=== PATIENT | female | born 1930 | race Caucasian/White ===

== ENCOUNTER 2018-02-21 12:21 | Outpatient (CLI) | payer MEDICARE, OTHER ==
--- NOTE | 2018-02-21 15:19 | RAD ---
THORACIC SPINE 3 VIEWS: HISTORY: Back pain. FINDINGS: There are 12 thoracic-type vertebrae. Pedicles are intact. Vertebral body heights and alignment are maintained. Moderate osteophytosis throughout the vertebral bodies and facets. Dorsal column stimu lator leads overlie the thoracic spine at the midline to the T7-T8 level. IMPRESSION: Degenerative changes thoracic spine. No acute osseous abnormalities are demonstrated. POS: [facility]
== END 2018-02-21 12:22 | disposition home or self-care (01) ==
LOC: RAD 12:21
PROVIDERS: ATTEND Nurse Practitioner Family
DX: M47.24 Other spondylosis with radiculopathy, thoracic region (principal)
CPT/HCPCS: 72072

== ENCOUNTER 2018-08-05 10:56 | Outpatient (CLI) | payer MEDICARE, OTHER ==
[~2018-08-05 10:56] MED LIST: Iopamidol 370 76% 100 ML VIAL ONE
--- NOTE | 2018-08-05 12:23 | CT ---
CT PELVIS WITH AND WITHOUT CONTRAST: Date: 08/05/18 HISTORY: Pelvic pain. COMPARISON: None. FINDINGS: CT of the pelvis performed prior to and after the intravenous administration of contrast. Enteric con trast was administered. A generator is noted over the left posterior buttock with lead extending craniad, although incomplete ly evaluated on this examination. Mild diverticular disease sigmoid colon. No active inflammation. No free fluid or gas within the pelvis. There are hysterectomy changes. Extensive atherosclerotic plaque of the aorta. No aneurysmal dilatation of the distal aorta or the il iac vessels. Paraspinal musculature is symmetric. Iliopsoas musculature is symmetric. Laminectomy changes lower lumbar spine. There is anterolisthesis of L4 over L5 approximately 6.0 mm. 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 Large posterior disc osteophyte complexes at L3-4 and L4-5 and L5-S1. There is severe neural foraminal narrowing bilaterally at L4-5 due to pos terior disc osteophyte complex, anterolisthesis, and facet changes. IMPRESSION: 1. No acute abnormality of the pelvis. 2. Advanced spondylosis of the lumbar spine, which appears to be mildly progressed from the 2017 MRI study, and could be a source of pain. POS: [facility]
== END 2018-08-05 10:57 | disposition home or self-care (01) ==
LOC: BICCT 10:56
PROVIDERS: ATTEND Internal Medicine Gastroenterology
DX: R10.30 Lower abdominal pain, unspecified (principal); M54.9 Dorsalgia, unspecified; G89.29 Other chronic pain; M47.816 Spondylosis without myelopathy or radiculopathy, lumbar region
CPT/HCPCS: 72194; 82565; Q9967

== ENCOUNTER 2018-10-27 02:11 | Emergency (ER) | payer MEDICARE, OTHER ==
[2018-10-27] MEDS ORDERED: Famotidine 20 MG TAB ONE (02:46)
[2018-10-27] MEDS ORDERED: Dexamethasone 10 MG/ML VIAL ONE (02:46)
[2018-10-27] MEDS ORDERED: diphenhydrAMINE 50 MG CAP ONE (02:46)
== END 2018-10-27 03:42 | disposition home or self-care (01) ==
LOC: ERS 02:11
DX: S40.812A Abrasion of left upper arm, initial encounter (principal); S40.811A Abrasion of right upper arm, initial encounter; L50.9 Urticaria, unspecified; I10 Essential (primary) hypertension; I25.10 Atherosclerotic heart disease of native coronary artery without angina pectoris; I25.2 Old myocardial infarction; E78.5 Hyperlipidemia, unspecified; X58.XXXA Exposure to other specified factors, initial encounter
CPT/HCPCS: 99282; J1100; Q0153

== ENCOUNTER 2019-07-30 14:12 | Outpatient (CLI) | payer MEDICARE, OTHER ==
--- NOTE | 2019-07-30 16:47 | BD ---
Exam: DEXA Bone Density 07/30/19 HISTORY: Osteoporosis. Right hip: BMD (g/cm2) T-SCORE Neck: 0.570 -2.5 Total: 0.710 -1.9 Left hip: Neck: 0.569 -2.5 Total: 0.695 -2.0 The ten year fracture risk for a major osteoporotic fracture is 27% and for hip fracture is 9.8%. IMPRESSION: Osteoporosis. POS: [facility]
== END 2019-07-30 14:13 | disposition home or self-care (01) ==
LOC: BICMAMMO 14:12
PROVIDERS: ATTEND Internal Medicine Rheumatology
DX: M81.0 Age-related osteoporosis without current pathological fracture (principal)
CPT/HCPCS: 77080

== ENCOUNTER 2019-08-25 12:58 | Outpatient (CLI) | payer MEDICARE, OTHER ==
--- NOTE | 2019-08-25 14:15 | CT ---
CT OF THE LUMBAR SPINE WITHOUT CONTRAST: Date: 08/25/2019 COMPARISON: None. HISTORY: Lumbar radiculopathy, low back pain with bilateral leg radiculopathy extending to the feet. TECHNIQUE: Noncontrast enhanced CT examination of the lumbar spine is obtained at 3 mm intervals with coronal an d sagittal reformatted imaging. FINDINGS: Evaluation for central canal and/or neural foraminal stenosis is limited on routine CT examination of the lumbar spine. There are dorsal column stimulators present which extend into the thoracic region and are only partia lly imaged on this exam. At the L4-5 level, there is anterolisthesis measuring 1.2 cm secondary to bilateral L4 pars defects. T12-L1: There is no osseous cause of significant central canal or neural foraminal stenosis. L1-2: No osseous cause of significant central canal or neural foraminal stenosis. L2-3: Minimal disc bulge. Mild bilateral facet hypertrophy. No osseous cause of significant central canal or neural foraminal stenosis. L3-4: There is disc space narrowing and vacuum disc formation with degenerative end plate change and disc bulge. Probable mild central canal stenosis. Bilateral facet hypertrophy present with osteophyt e encroachment on the neural foramina. There is associated at least mild neural foraminal stenosis on the left and moderate/severe neural foraminal stenosis on the right. L4-5: Pseudo disc bulge noted on the basis of anterolisthesis. Prominent bilateral facet hypertrophy with severe bilateral neural foraminal stenosis. There is at least mild central canal stenosis, whic h may be underestimated on the basis of this examination. L5-S1: There is disc space narrowing with vacuum disc formation and a small disc osteophyte complex. There is at least mild central canal stenosis. There is bilateral facet hypertrophy with moderate le ft and mild right neural foraminal stenosis. No worrisome lytic or blastic bone lesion. No displaced fracture or evidence of dislocation. There is scattered atherosclerotic calcification of the abdominal aorta and its branches. There is pa rtially visualized sigmoid diverticulosis. There is an incompletely imaged calcification overlying th e lower pole of the left kidney, likely representing a renal stone. The patient appears status post bilateral L4 and L5 laminectomy. IMPRESSION: Multilevel degenerative change within the lumbar spine as detailed above. The most significant findin gs are at the L4-5 level where there is anterolisthesis measuring 1.2 cm on the basis of bilateral L4 pars defects. There is associated significant bilateral neural foraminal stenosis. POS: [facility]
== END 2019-08-25 12:59 | disposition home or self-care (01) ==
LOC: BICCT 12:58
PROVIDERS: ATTEND Anesthesiology Pain Medicine
DX: M47.26 Other spondylosis with radiculopathy, lumbar region (principal); M48.061 Spinal stenosis, lumbar region without neurogenic claudication
CPT/HCPCS: 72131

== ENCOUNTER 2020-04-06 15:33 | Outpatient (CLI) | payer MEDICARE, OTHER ==
--- NOTE | 2020-04-06 16:18 | RAD ---
XR Knee Lt 2 View HISTORY: Left knee pain. Primary osteoarthritis FINDINGS: No fracture or dislocation is identified. There are [id number] degenerative changes, most promi nent in the medial tibiofemoral compartment.
== END 2020-04-06 15:34 | disposition home or self-care (01) ==
LOC: BICRAD 15:33
PROVIDERS: ATTEND Internal Medicine Rheumatology
DX: M17.12 Unilateral primary osteoarthritis, left knee (principal)